=== PATIENT | male | born 1990 | race Caucasian/White ===

== ENCOUNTER 2018-07-19 12:35 | Emergency (ER) | payer OTHER ==
[2018-07-19 12:52] VITALS: BP 126/71; PULSE 92; RESP 18; TEMP 97.8
--- NOTE | 2018-07-19 13:49 | XR ---
EXAMINATION TYPE: XR foot complete RT DATE OF EXAM: 07/19/2018 CLINICAL HISTORY: Right lateral foot pain and bruising after fall TECHNIQUE: Frontal, lateral, and oblique images of the right foot are obtained. COMPARISON: None FINDINGS: In addition to a prominent apophysis there is a transversely oriented Conrad fracture that i s not comminuted and nondisplaced but intra-articular located 1.0 cm from the base of the apophysis. Mild overlying soft tissue swelling is seen. No additional acute fracture or dislocation of the right foot. IMPRESSION: Nondisplaced, noncomminuted, intra-articular Conrad fracture of the base of the fifth meta tarsal with mild overlying soft tissue swelling.
--- NOTE | 2018-07-19 14:50 | ED ---
General Adult HPI - General Chief complaint: Extremity Injury, Lower Stated complaint: Foot injury Time Seen by Provider: 07/19/18 12:55 Source: patient Mode of arrival: ambulatory Limitations: no limitations - History of Present Illness Initial comments: Patient is a 27-year-old male presenting to emergency Department with right foot pain. Patient states that yesterday he was walking in his backyard when he accidentally stepped into a hole and landed awkwardly on his foot. Patient reports minimal pain at the time of incident so he did not seek care. Patient reports that after waking up this morning he noticed localized erythema and edema. Patient reports difficulty with weightbearing and limited range of motion. Patient reports pain is exacerbated with plantar flexion. Patient denies taking any medication to alleviate the pain. Patient denies numbness or tingling. - Related Data Previous Rx's Medication Instructions Recorded Acetaminophen Tab [Tylenol Tab] 500 mg PO Q4H PRN #40 tablet 07/19/18 Ibuprofen 400 mg PO Q6HR PRN #30 tablet 07/19/18 Allergies Allergy/AdvReac Type Severity Reaction Status Date / Time No Known Allergies Allergy Verified 07/19/18 12:52 Review of Systems ROS Statement: Those systems with pertinent positive or pertinent negative responses have been documented in the HPI. ROS Other: All systems not noted in ROS Statement are negative. Past Medical History Past Medical History: No Reported History History of Any Multi-Drug Resistant Organisms: None Reported Past Surgical History: Orthopedic Surgery Additional Past Surgical History / Comment(s): left knee surgery Past Psychological History: No Psychological Hx Reported Smoking Status: Current every day smoker Past Alcohol Use History: Occasional Past Drug Use History: Marijuana General Exam Limitations: no limitations General appearance: alert, in no apparent distress Head exam: Present: atraumatic, normocephalic, normal inspection Eye exam: Present: normal appearance Neck exam: Present: normal inspection Respiratory exam: Present: normal lung sounds bilaterally Cardiovascular Exam: Present: regular rate, normal rhythm, normal heart sounds Right Hip exam: Present: normal inspection, full ROM Upper Leg exam: Present: normal inspection, full ROM Knee exam: Present: normal inspection, full ROM Lower Leg exam: Present: normal inspection, full ROM Ankle exam: Present: normal inspection, full ROM Foot/Toe exam: Present: tenderness, swelling, erythema, tenderness at base of 5th metatarsal. Absent: abrasion, ecchymosis, dislocation, puncture wound, foreign body, calcaneal tenderness Neurovascular tendon exam: Present: no vascular compromise Gait: unable to bear weight Neurological exam: Present: alert, oriented X3 Psychiatric exam: Present: normal affect, normal mood Skin exam: Present: warm, normal color Course Vital Signs 07/19/18 12:49 Temperature 97.8 F Pulse Rate 92 Respiratory 18 Rate Blood Pressure 126/71 O2 Sat by Pulse 97 Oximetry Procedures - Orthopedic Splinting/Casting Injury #1 Lower Extremity Immobilizer: posterior splint Medical Decision Making - Medical Decision Making Patient is a 27-year-old male presenting to the emergency Department with right foot pain. X-ray suggestive of fifth metatarsal Conrad fracture. Posterior splint was applied to the foot. Patient advised to alternate between Tylenol and ibuprofen for pain control. Patient advised to keep leg elevated and she advised to not bear weight on foot. Crutches were prescribed. Patient advised not to bear weight on right foot. Patient advised to follow-up with orthopedics. Patient advised to return to emergency department if symptoms worsen. Case discussed with physician. Disposition Clinical Impression: Foot fracture, right Disposition: HOME SELF-CARE Condition: Stable Instructions (If sedation given, give patient instructions): Foot Fracture in Adults (ED) Additional Instructions: Please also had between Tylenol and ibuprofen for pain. Please follow up with orthopedics. Please return to the emergency department is symptoms worsen. Please use crutches and do not bear weight on right foot. Is patient prescribed a controlled substance at d/c from ED?: No Referrals: None,Stated [Primary Care Provider] - 1-2 days
== END 2018-07-19 14:55 | disposition home or self-care (01) ==
LOC: EC 12:35
DX: S92.901A Unspecified fracture of right foot, initial encounter for closed fracture (principal); F17.200 Nicotine dependence, unspecified, uncomplicated; W18.42XA Slipping, tripping and stumbling without falling due to stepping into hole or opening, initial encounter; Y92.096 Garden or yard of other non-institutional residence as the place of occurrence of the external cause; Y93.01 Activity, walking, marching and hiking
CPT/HCPCS: 29515; 99283

== ENCOUNTER 2021-01-03 18:48 | Emergency (ER) | payer OTHER ==
[2021-01-03 19:09] VITALS: BP 137/70; PULSE 71; RESP 18; TEMP 98.6
[2021-01-03] MEDS ORDERED: KETOROLAC 15 MG/ML 1 ML VIAL IM STA (20:36)
--- NOTE | 2021-01-03 20:43 | ED ---
General Adult HPI - General Chief complaint: Extremity Injury, Upper Stated complaint: wrist & back pain Time Seen by Provider: 01/03/21 20:32 Source: patient, RN notes reviewed Mode of arrival: ambulatory Limitations: no limitations - History of Present Illness Initial comments: This is a well-appearing well-nourished 30-year-old man, alert and oriented 4, presents to the emergency room with complaints of left wrist pain and low back pain for the past 2 days. He states that he's been at work shoveling a lot over the past 2 days. He states that the wrist pain is sharp with flexion and extension. He denies any injury. He denies any bowel or bladder incontinence. He is ambulatory with a steady gait. Denies any fevers or recent surgeries. -: days(s) (2) Location: back (lumbar), left, upper extremity (wrist) Radiation: non-radiation Severity scale (1-10): 9 Quality: sharp Consistency: constant Improves with: rest Worsens with: movement Associated Symptoms: denies other symptoms Treatments Prior to Arrival: none - Related Data Previous Rx's Medication Instructions Recorded Acetaminophen Tab [Tylenol Tab] 500 mg PO Q4H PRN #40 tablet 07/19/18 Ibuprofen 400 mg PO Q6HR PRN #30 tablet 07/19/18 Ibuprofen [Motrin] 600 mg PO Q8HR PRN #30 tab 01/03/21 Allergies Allergy/AdvReac Type Severity Reaction Status Date / Time No Known Allergies Allergy Verified 01/03/21 19:10 Review of Systems ROS Statement: Those systems with pertinent positive or pertinent negative responses have been documented in the HPI. ROS Other: All systems not noted in ROS Statement are negative. Past Medical History Past Medical History: No Reported History History of Any Multi-Drug Resistant Organisms: None Reported Past Surgical History: Orthopedic Surgery Additional Past Surgical History / Comment(s): left knee surgery Past Psychological History: No Psychological Hx Reported Smoking Status: Current every day smoker Past Alcohol Use History: None Reported Past Drug Use History: Marijuana General Exam Limitations: no limitations General appearance: alert, in no apparent distress Head exam: Present: atraumatic, normocephalic, normal inspection Eye exam: Present: normal appearance, EOMI ENT exam: Present: normal exam, normal oropharynx, mucous membranes moist Neck exam: Present: normal inspection, full ROM Respiratory exam: Present: normal lung sounds bilaterally. Absent: respiratory distress, wheezes, rales, rhonchi, stridor Cardiovascular Exam: Present: regular rate, normal rhythm, normal heart sounds. Absent: systolic murmur, diastolic murmur, rubs, gallop, clicks Left Forearm Wrist exam: Present: normal inspection, full ROM. Absent: tenderness Hand Wrist exam: Present: tenderness. Absent: full ROM, swelling, laceration, ecchymosis, deformity, crepitus, erythema Neuro motor exam: Present: wrist extension intact, other (Positive Phalen test) Neurosensory exam: Present: radial nerve intact, ulnar nerve intact, median nerve intact Vascular: Present: normal capillary refill. Absent: vascular compromise Back exam: Present: full ROM, tenderness Neurological exam: Present: alert (Lumbar), oriented X3, normal gait Psychiatric exam: Present: normal affect, normal mood Skin exam: Present: warm, dry, intact, normal color. Absent: rash, cyanosis, diaphoretic, petechiae, pallor Course Vital Signs 01/03/21 19:08 Temperature 98.6 F Pulse Rate 71 Respiratory 18 Rate Blood Pressure 137/70 O2 Sat by Pulse 98 Oximetry Medical Decision Making - Medical Decision Making Patient states that his left wrist pain and low back pain started after shoveling and lifting heavy objects at work over the past couple days. He denies any other injury. He has no medical history does not take any medicine on a daily basis. He states pain is 9 out of 10. Patient has a positive Phalen test. He was put in an Ashkan wrap and directed to get a wrist splint to wear during the day and take Motrin for pain every 8 hours. Instructed to follow-up with his primary care doctor in 1 week. Case was discussed with Dr. Esparza. Disposition Clinical Impression: De Quervain's tenosynovitis, left Disposition: HOME SELF-CARE Condition: Good Instructions (If sedation given, give patient instructions): Tenosynovitis (ED), Back Pain (ED), Lower Back Exercises (ED) Additional Instructions: Take Motrin 600 mg every 8 hours for the next 3 days. You can buy a wrist splint at the store to immobilize your wrist for the next couple of days. Follow-up with the primary care doctor in 1 week. Return to the emergency room with any new or worsening symptoms. He continues Biofreeze, Salonpas patches or other topical pain relievers in addition for back pain. Prescriptions: Ibuprofen [Motrin] 600 mg PO Q8HR PRN #30 tab PRN Reason: Pain Is patient prescribed a controlled substance at d/c from ED?: No Referrals: Mary Gale MD [Primary Care Provider] - 1-2 days Time of Disposition: 20:46
== END 2021-01-03 21:16 | disposition home or self-care (01) ==
LOC: EC 18:48
DX: M65.4 Radial styloid tenosynovitis [de Quervain] (principal)
CPT/HCPCS: 96372; 99283; J1885

== ENCOUNTER 2024-02-07 16:33 | Emergency (ER) | payer OTHER ==
--- NOTE | 2024-02-07 17:09 | ED ---
Wound/Laceration HPI - General Chief Complaint: Wound/Laceration Stated Complaint: FINGER LACERATION Time Seen by Provider: 02/07/24 16:51 Source: patient, RN notes reviewed Mode of arrival: ambulatory Limitations: no limitations - History of Present Illness Initial Comments: This is a 33-year-old male presenting with bilateral hand lacerations x 1.5 ho urs ago. Patient states he was in a pole barn when his friend accidentally pushed a metal grate onto his hands, injuring both. Patient states he is unsure of tetanus vaccination status. Rates pain currently at 2/10. Denies loss of sensation or motor function. Denies other injuries. Onset/Timin -: week(s) - Related Data Previous Rx's Medication Instructions Recorded Acetaminophen Tab [Tylenol Tab] 500 mg PO Q4H PRN #40 tablet 07/19/18 Ibuprofen 400 mg PO Q6HR PRN #30 tablet 07/19/18 Ibuprofen [Motrin] 600 mg PO Q8HR PRN #30 tab 01/03/21 Cephalexin [Keflex] 500 mg PO Q6HR 5 Days #20 cap 02/07/24 Allergies Allergy/AdvReac Type Severity Reaction Status Date / Time No Known Allergies Allergy Verified 02/07/24 16:52 Review of Systems ROS Statement: Those systems with pertinent positive or pertinent negative responses have been documented in the HPI. ROS Other: All systems not noted in ROS Statement are negative. Past Medical History Past Medical History: No Reported History History of Any Multi-Drug Resistant Organisms: None Reported Past Surgical History: Orthopedic Surgery Additional Past Surgical History / Comment(s): left knee surgery Past Psychological History: No Psychological Hx Reported Smoking Status: Current every day smoker Past Alcohol Use History: None Reported Past Drug Use History: Marijuana General Exam - General Exam Comments Initial Comments: Visual Physical Exam Vital signs reviewed General: Well-appearing, nontoxic, no acute distress. Head: Normocephalic, atraumatic Eyes: PERRLA, EOMI ENT: Airway patent Chest: Nonlabored breathing Skin: No visual rash, normal skin tone. Multiple 1 to 2 cm lacerations noted over dorsal aspects of hands/fingers Neuro: Alert and oriented 3 Musculoskeletal: No gross abnormalities Limitations: no limitations General appearance: alert, in no apparent distress Head exam: Present: atraumatic, normocephalic, normal inspection Eye exam: Present: normal appearance, PERRL, EOMI. Absent: scleral icterus, conjunctival injection, periorbital swelling ENT exam: Present: normal exam, mucous membranes moist Neck exam: Present: normal inspection. Absent: tenderness, meningismus, lymphadenopathy Respiratory exam: Present: normal lung sounds bilaterally. Absent: respiratory distress, wheezes, rales, rhonchi, stridor Cardiovascular Exam: Present: regular rate, normal rhythm, normal heart sounds. Absent: systolic murmur, diastolic murmur, rubs, gallop, clicks GI/Abdominal exam: Present: soft, normal bowel sounds. Absent: distended, tenderness, guarding, rebound, rigid Extremities exam: Present: full ROM, normal capillary refill, other (3 cm deep laceration at left dorsal MCP joint with exposure of extensor tendon. Black punctate foreign body noted. 1 other shallow laceration noted on left dorsal index finger with 2 shallow lacerations noted right dorsal hand no obvious foreign body or surrounding erythema. Negative crepitus, de). Absent: tenderness, pedal edema, joint swelling, calf tenderness Back exam: Present: normal inspection Neurological exam: Present: alert, oriented X3, CN II-XII intact Psychiatric exam: Present: normal affect, normal mood Skin exam: Present: warm, dry, intact, normal color. Absent: rash Course Vital Signs 02/07/24 16:50 Temperature 98.4 F Pulse Rate 92 Respiratory 16 Rate Blood Pressure 130/76 O2 Sat by Pulse 99 Oximetry Procedures - Laceration Laceration #1 Consent Obtained: verbal consent Indication: laceration Site: hand Size (cm): 3 Description: linear Depth: simple, single layer Anesthetic Used: lidocaine 1% Anesthesia Technique: local infiltration Pre-repair: wound explored, irrigated extensively, foreign body removed (Black punctate foreign body noted in x-ray removed) Type of Sutures: nylon Size of Sutures: 5-0 Number of Sutures: 6 Technique: simple, interrupted Patient Tolerated Procedure: well Medical Decision Making - Medical Decision Making Was pt. sent in by a medical professional or institution ([facility], ASSEMBLY CLEANER, urgent care, hospital, or senior care...) When possible be specific @ -[No] Did you speak to anyone other than the patient for history (EMS, parent, family, police, friend...)? What history was obtained from this source @ -[No] Did you review nursing and triage notes (agree or disagree)? Why? @ -[I reviewed and agree with nursing and triage notes] Were old charts reviewed (outside hosp., previous admission, EMS record, old EKG, old radiological studies, urgent care reports/EKG's, senior care records)? Report findings @ -[No old charts were reviewed] Differential Diagnosis (chest pain, altered mental status, abdominal pain women, abdominal pain men, vaginal bleeding, weakness, fever, dyspnea, syncope, headache, dizziness, GI bleed, back pain, seizure, CVA, palpatations, mental health, musculoskeletal)? @ -Hand contusion, hand fracture, dislocation, laceration, this is not an exhaustive list. EKG interpreted by me (3pts min.). @ -Not done X-rays interpreted by me (1pt min.). @ -Bilateral hand x-ray showed no obvious fractures or dislocation with solitary punctate foreign body noted at base of left thumb. CT interpreted by me (1pt min.). @ -[None done] U/S interpreted by me (1pt. min.). @ -[None done] What testing was considered but not performed or refused? (CT, X-rays, U/S, labs)? Why? @ -[None] What meds were considered but not given or refused? Why? @ -[None] Did you discuss the management of the patient with other professionals (professionals i.e. , PA, ASSEMBLY CLEANER, lab, RT, psych nurse, social media senior associate, yardage control operator forming, teacher, loan workout officer, bilingual patient support caseworker)? Give summary @ -[No] Was smoking cessation discussed for >3mins.? @ -[No] Was critical care preformed (if so, how long)? @ -[No] Were there social determinants of health that impacted care today? How? (Homelessness, low income, unemployed, alcoholism, drug addiction, transportation, low edu. Level, literacy, decrease access to med. care, correction, rehab)? @ -[No] Was there de-escalation of care discussed even if they declined (Discuss DNR or withdrawal of care, Hospice)? DNR status @ -[No] What co-morbidities impacted this encounter? (DM, HTN, Smoking, COPD, CAD, Cancer, CVA, ARF, Chemo, Hep., AIDS, mental health diagnosis, sleep apnea, morbid obesity)? @ -[None] Was patient admitted / discharged? Hospital course, mention meds given and route, prescriptions, significant lab abnormalities, going to OR and other pertinent info. @ -[hospital course] Undiagnosed new problem with uncertain prognosis? @ -[No] Drug Therapy requiring intensive monitoring for toxicity (Heparin, Nitro, Insulin, Cardizem)? @ -[No] Were any procedures done? @ -[No] Diagnosis/symptom? @ -Bilateral hand contusion/lacerations Acute, or Chronic, or Acute on Chronic? @ -Acute Uncomplicated (without systemic symptoms) or Complicated (systemic symptoms)? @ -Uncomplicated Side effects of treatment? @ -[No] Exacerbation, Progression, or Severe Exacerbation? @ -[No] Poses a threat to life or bodily function? How? (Chest pain, [place], [place], pneumonia, PE, COPD, DKA, ARF, appy, cholecystitis, CVA, Diverticulitis, Homicidal, Suicidal, threat to staff... and all critical care pts) @ -[No] Disposition Clinical Impression: Laceration Disposition: HOME SELF-CARE Condition: Good Instructions (If sedation given, give patient instructions): Care For Your Stitches (ED) Prescriptions: Cephalexin [Keflex] 500 mg PO Q6HR 5 Days #20 cap Is patient prescribed a controlled substance at d/c from ED?: No Referrals: None,Stated [Primary Care Provider] - 1-2 days Time of Disposition: 18:47
--- NOTE | 2024-02-07 17:55 | XR ---
EXAMINATION TYPE: XR hand limited bilateral DATE OF EXAM: 02/07/2024 5:50 PM COMPARISON: None. CLINICAL INDICATION: Male, 33 years old with history of Bilateral hand lacerations, metal grate fell onto hands, TECHNIQUE: 2 view(s) obtained bilateral hands each. FINDINGS: Left hand: No acute fracture or dislocation evident. Joint spaces are preserved. Soft tissues appear normal. There is a punctate metallic foreign body at the base of the thumb. Right hand: No acute fractures or dislocations evident. Joint spaces are preserved. Soft tissues appe ar normal. No radiopaque foreign bodies identified. IMPRESSION: 1. Punctate radiopaque foreign body at the base of the left thumb. 2. No acute osseous abnormality bilateral hands. [facility], , 02/07/2024 5:53 PM
[2024-02-07] MEDS: LIDOCAINE 1% INJ 10MG/ML (20 ML MDV) SQ ONE (17:56)
[2024-02-07] MEDS: DIPH,PERTUS(ACELL)TETVAC-LF 0.5 ML VIAL IM ONE (17:57)
[2024-02-07 18:58] VITALS: BP 126/76; PULSE 86; RESP 18; TEMP 98.1
== END 2024-02-07 18:58 | disposition home or self-care (01) ==
LOC: EC 16:33
DX: S61.411A Laceration without foreign body of right hand, initial encounter (principal); S61.412A Laceration without foreign body of left hand, initial encounter; F17.200 Nicotine dependence, unspecified, uncomplicated; Z23 Encounter for immunization; W26.9XXA Contact with unspecified sharp object(s), initial encounter
CPT/HCPCS: 73120; 90715; 12002; 99283; 90471; J2003